=== PATIENT | female | born 1965 | race Caucasian/White ===

== ENCOUNTER 2024-08-14 16:53 | Observation (INO) | payer OTHER, SELFPAY ==
[2024-08-14] VITALS (12 sets, daily range): BP systolic 137–142; BP diastolic 78–99; PULSE 58–72; RESP 9–20; TEMP 36.6; O2SAT 97–100
--- NOTE | ~2024-08-14 | XR_ITS ---
XR chest 2V Ordering provider: Serina Guo MD History: 58 years Female with . chest pain . Comparison: None. FINDINGS: MEDIASTINUM: The cardiac silhouette is not enlarged. LUNGS: No infiltrates, effusions or pneumothorax. OTHER: No free air under the diaphragm. Degenerative changes of the spine. IMPRESSION: No acute cardiopulmonary pathology. Reviewed, dictated and finalized at location A. LITIES CUSTODIAN
--- NOTE | 2024-08-14 16:54 | ECG_ITS ---
Test Date: 2024-08-14 16:59:56 Measurements Intervals [place] Rate: 76 P: 32 GA: 132 QRS: 35 QRSD: 85 T: 56 QT: 380 QTc: 428 Interpretive Statements SINUS RHYTHM WITH OCCASIONAL VENTRICULAR PREMATURE COMPLEXES MILD ST DEPRESSION [0.05+ mV ST DEPRESSION] No previous ECG available for comparison Electronically Signed On 08-15-2024 15:03:57 GREEN END WORKER by Erica Gimenez M.D.
[2024-08-14 17:14] LABS: Basophils Percent Auto 0.4 % (0.2-1.2); Eosinophils Absolute Auto 0.1 K/mm3 (0-0.3); Eosinophils Percent Auto 1.2 % (0-4.4); Hematocrit 36.9 % (37.0-47.0); Hemoglobin 12.2 g/dL (12.0-15.0); Immature Granulocyte Absolute 0.01 K/mm3 (0.00-0.031); Immature Granulocyte Percent A 0.2 % (0-0.5); Lymphocytes Absolute Auto 2.99 K/mm3 (0.9-3.2); Lymphocytes Percent Auto 52.9 % (18.3-44.2); Mean Corpuscular HGB Conc 33.1 g/dl (32-36); Mean Corpuscular Hemoglobin 30.3 pg (26-34); Mean Corpuscular Volume 91.6 fl (80-100); Mean Platelet Volume 9.6 fl (7.4-10.4); Monocytes Absolute Auto 0.3 K/mm3 (0.1-0.6); Monocytes Percent Auto 5.8 % (2.6-8.5); Neutrophils Absolute Auto 2.2 K/mm3 (1.3-6.7); Neutrophils Percent Auto 39.5 % (45.5-73.1); Platelet Count Result 253 k/mm3 (150-375); Red Blood Count 4.03 M/mm3 (4.2-5.4); Red Cell Distribution Width 12.2 % (11.5-14.5); White Blood Count 5.7 K/mm3 (4.5-10.0)
[2024-08-14 17:26] LABS: Alanine Aminotransferase 15 U/L (6-35); Albumin Level 4.7 g/dL (3.5-5.1); Alkaline Phosphatase 54 U/L (38-126); Anion Gap 5 mmol/L (4-12); Aspartate Amino Transferase 28 U/L (14-36); Bilirubin,Total 0.4 mg/dL (0.2-1.3); Blood Urea Nitrogen 13 mg/dL (7-17); Carbon Dioxide 34 mmol/L (22-30); Chloride 100 mmol/L (98-107); Estimated CRCL calculation 50 ml/min; Estimated Glomerular Filt Rate 57; Glucose 121 mg/dL (65-110); Lipase 123 U/L (23-300); Potassium 3.6 mmol/L (3.4-5.0); Sodium 139 mmol/L (137-145)
[2024-08-14 17:28] LABS: INR 0.9; Prothrombin Time 12.7 Seconds (11.1-14.7)
[2024-08-14 17:29] LABS: Partial Thromboplastin Time 27.3 Seconds (22.3-36.8)
[2024-08-14 17:38] LABS: Troponin I < 0.012 ng/mL (0.000-0.034)
--- NOTE | 2024-08-14 17:42 | ED.CHESTPAIN ---
HPI - Chest Pain General Chief Complaint: Chest Pain <Kay TabathaMarimar Fofana EARLY CHILDHOOD ASSOCIATE TEACHER - Last Filed: 08/14/24 17:45> Stated Complaint: chest pain <Kaydarby Fofana EARLY CHILDHOOD ASSOCIATE TEACHER - Last Filed: 08/14/24 17:45> Time Seen by Provider: 08/14/24 17:20 <Kay TabathaMarimar Fofana EARLY CHILDHOOD ASSOCIATE TEACHER - Last Filed: 08/14/24 17:45> Focused HPI: Patient is a 58-year-old female who presents to the ER with complaints of chest pain. She reports that she experienced similar chest pain of approximately 1 week ago but it went away on its. Patient endorses chest pain that started approximately 3-4 hours ago and has not subsided. She endorses a history of high blood pressure, but denies any recent fevers or shortness of breath. GENERAL: Well-appearing, well-nourished, and in no acute distress. HEAD: Normocephalic, atraumatic. CHEST: Clear to auscultation. ?No respiratory distress. HEART: Regular rate and rhythm.? NEURO: ?Alert and oriented x3. Patient screened in triage and initial orders placed.? ?Additional care and disposition to be based upon?diagnostic testing and treatment. <Kaydarby Fofana EARLY CHILDHOOD ASSOCIATE TEACHER - Last Filed: 08/14/24 17:45> Focused HPI: Patient is a 58-year-old female who presents to the ER with complaints of chest pain. She reports that she experienced similar chest pain of approximately 1 week ago but it went away on its. Patient endorses chest pain that started approximately 3-4 hours ago and has not subsided. She endorses a history of high blood pressure, but denies any recent fevers or shortness of breath. The pain feels like a pressure. Her mother at age 64 of a heart attack. GENERAL: Well-appearing, well-nourished, and in no acute distress. HEAD: Normocephalic, atraumatic. CHEST: Clear to auscultation. ?No respiratory distress. HEART: Regular rate and rhythm.? NEURO: ?Alert and oriented x3. Patient screened in triage and initial orders placed.? ?Additional care and disposition to be based upon?diagnostic testing and treatment. <Rita Connor PA-C - Last Filed: 08/15/24 04:10> Related Data Home Medications: Home Medications Medication Instructions Recorded Confirmed fluoxetine 40 mg capsule 40 mg PO DAILY 08/15/24 08/15/24 hydrochlorothiazide 12.5 mg capsule 12.5 mg PO DAILY 08/15/24 08/15/24 omeprazole magnesium 20 mg 20 mg PO DAILY 08/15/24 08/15/24 tablet,delayed release (Prilosec OTC) raloxifene 60 mg tablet 60 mg PO DAILY 08/15/24 08/15/24 rosuvastatin 10 mg tablet 10 mg PO DAILY 08/15/24 08/15/24 <Kay Fofana APRN - Last Filed: 08/14/24 17:45> Allergies/Adverse Reactions: Allergies Allergy/AdvReac Type Severity Reaction Status Date / Time Penicillins Allergy Mild Unknown Verified 08/14/24 16:54 <Kay Fofana APRN - Last Filed: 08/14/24 17:45> Review of Systems Review of Systems: CONSTITUTIONAL: Denies fever CARDIOVASCULAR: Reports chest pain. Denies palpitations, or edema. RESPIRATORY: Denies cough or dyspnea. <Rita Connor PA-C - Last Filed: 08/15/24 04:10> All systems reviewed & are unremarkable except as noted in HPI and below <Rita Connor PA-C - Last Filed: 08/15/24 04:10> [facility] Past Medical History Medical History: Medical History (Updated 08/15/24 @ 04:07 by Rita Connor PA-C) History of hyperlipidemia History of hypertension <Kay Fofana APRN - Last Filed: 08/14/24 17:45> Family History Family History: Family History (Updated 08/15/24 @ 02:47 by Cierra Mcnulty RN) Father Brain cancer Mother Heart disease <Kay Fofana APRN - Last Filed: 08/14/24 17:45> Social History Social History: Social History (Updated 08/14/24 @ 23:58 by Rita Connor PA-C) Smoking status: Never smoker Do You Feel Safe in your Home?: Yes Lack of Transportation: No Lack of Food: Never True Current Housing: I Have Housing Concerned About Future Housing: No Difficulty Paying Gas/Electric Bills: No Difficulty Paying for Meds: No Currently Unemployed: No Education: Trade/Vocational Certificate Difficulty w/ Childcare or Family Care: No Spiritual care concerns: No <Kay Fofana APRN - Last Filed: 08/14/24 17:45> Exam Narrative: GENERAL: Well-appearing, well-nourished, and in no acute distress. HEAD: Normocephalic, atraumatic. EYES: EOMI. NECK: Supple. No JVD CHEST: Clear to auscultation. No respiratory distress. No wheezes rales or rhonchi HEART: Regular rate and rhythm. No murmur heard. Normal peripheral pulses. EXTREMITIES: Normal range of motion. No edema. SKIN: Warm, dry, no rash. NEURO: No focal deficits. Alert and oriented x3. PSYCH: Normal mood and affect <Rita Connor PA-C - Last Filed: 08/15/24 04:10> Course Course Emergency Course: patient updated on her workup and recommendation for admission <Rita Connor PA-C - Last Filed: 08/15/24 04:10> Consultations Consultation #1: spoke with hospitalist about patient and workup who accepts admission <Rita Connor PA-C - Last Filed: 08/15/24 04:10> Date: 08/14/24 <JAMIE Jack Last Filed: 08/15/24 04:10> Vital Signs Vital signs: Vital Signs Temperature 97.8 F 08/14/24 17:15 Pulse Rate 72 08/14/24 17:15 Respiratory Rate 18 08/14/24 17:15 Blood Pressure 137/78 08/14/24 17:15 Pulse Oximetry 99 08/14/24 17:15 Oxygen Delivery Room Air 08/14/24 17:15 Temperature 97.8 F 08/14/24 17:15 Pulse Rate 64 08/15/24 02:31 Respiratory Rate 22 H 08/15/24 02:31 Blood Pressure 152/83 H 08/15/24 02:31 Pulse Oximetry 96 08/15/24 02:31 Oxygen Delivery Room Air 08/14/24 22:20 <Kay Fofana APRN - Last Filed: 08/14/24 17:45> Vital Signs Temperature 97.8 F 08/14/24 17:15 Pulse Rate 72 08/14/24 17:15 Respiratory Rate 18 08/14/24 17:15 Blood Pressure 137/78 08/14/24 17:15 Pulse Oximetry 99 08/14/24 17:15 Oxygen Delivery Room Air 08/14/24 17:15 Temperature 97.8 F 08/14/24 17:15 Pulse Rate 64 08/15/24 02:31 Respiratory Rate 22 H 08/15/24 02:31 Blood Pressure 152/83 H 08/15/24 02:31 Pulse Oximetry 96 08/15/24 02:31 Oxygen Delivery Room Air 08/14/24 22:20 <Rita Connor PA-C - Last Filed: 08/15/24 04:10> MDM - Chest Pain MDM Narrative Medical decision making narrative: Patient presents to the emergency department for episodes of chest pain ongoing over the last week. History of hypertension and hyperlipidemia. Also reports family history of coronary artery disease. CBC metabolic panel without concerning findings. EKG without acute ST changes and baseline and 3 hour troponin are negative. D-dimer is not elevated. Chest x-ray without acute cardiopulmonary abnormality. Patient's heart score is 4. Will be admitted for further observation for chest pain. spoke with hospitalist about patient and workup who accepts admission <Rita Connor PA-C - Last Filed: 08/15/24 04:10> Differential Diagnosis Differential diagnosis: Likely stable angina, atypical chest pain, costochondritis and biliary colic <Rita Connor PA-C - Last Filed: 08/15/24 04:10> Lab Data Attestation: I reviewed the patient's lab results. <Rita Connor PA-C - Last Filed: 08/15/24 04:10> Result diagrams: 08/14/24 17:06 08/14/24 17:06 <Kay Fofana APRN - Last Filed: 08/14/24 17:45> Labs: Lab Results 08/14/24 08/14/24 08/15/24 Range/Units 17:06 22:14 00:53 WBC 5.7 (4.5-10.0) K/mm3 RBC 4.03 L (4.2-5.4) M/mm3 Hgb 12.2 (12.0-15.0) g/dL Hct 36.9 L (37.0-47.0) % MCV 91.6 (80-100) fl MCH 30.3 (26-34) pg MCHC 33.1 (32-36) g/dl RDW 12.2 (11.5-14.5) % Plt Count 253 (150-375) k/mm3 MPV 9.6 (7.4-10.4) fl Immature Gran % (Auto) 0.2 (0-0.5) % Neut % (Auto) 39.5 L (45.5-73.1) % Lymph % (Auto) 52.9 H (18.3-44.2) % [place] % (Auto) 5.8 (2.6-8.5) % Eos % (Auto) 1.2 (0-4.4) % Baso % (Auto) 0.4 (0.2-1.2) % Lymph # (Auto) 2.99 (0.9-3.2) K/mm3 [place] # (Auto) 0.3 (0.1-0.6) K/mm3 Eos # (Auto) 0.1 (0-0.3) K/mm3 Baso # (Auto) 0.0 (0.0-0.1) K/mm3 Abs Immat Gran (auto) 0.01 (0.00-0.031) K/mm3 Absolute Neuts (auto) 2.2 (1.3-6.7) K/mm3 Absolute Nucleated RBC 0.000 (0.0-0.012) K/mm3 Nucleated RBC % 0.0 (0.0-0.2) % PT 12.7 (11.1-14.7) Seconds INR 0.9 APTT 27.3 (22.3-36.8) Seconds D-Dimer < 0.27 (<0.48) ug/mL Sodium 139 (137-145) mmol/L Potassium 3.6 (3.4-5.0) mmol/L Chloride 100 (98-107) mmol/L Carbon Dioxide 34 H (22-30) mmol/L Anion Gap 5 (4-12) mmol/L BUN 13 (7-17) mg/dL Creatinine 1.00 (0.7-1.0) mg/dL Estim Creat Clear Calc 50 ml/min Estimated GFR 57 L (59 - ) Glucose 121 H (65-110) mg/dL Calcium 9.0 (8.4-10.2) mg/dL Total Bilirubin 0.4 (0.2-1.3) mg/dL AST 28 (14-36) U/L ALT 15 (6-35) U/L Alkaline Phosphatase 54 (38-126) U/L Troponin I < 0.012 < 0.012 < 0.012 (0.000-0.034) ng/mL Total Protein 8.0 (6.3-8.2) g/dL Albumin 4.7 (3.5-5.1) g/dL Lipase 123 (23-300) U/L <Kay Fofana, EARLY CHILDHOOD ASSOCIATE TEACHER - Last Filed: 08/14/24 17:45> Lab Results 08/14/24 08/14/24 08/15/24 Range/Units 17:06 22:14 00:53 WBC 5.7 (4.5-10.0) K/mm3 RBC 4.03 L (4.2-5.4) M/mm3 Hgb 12.2 (12.0-15.0) g/dL Hct 36.9 L (37.0-47.0) % MCV 91.6 (80-100) fl MCH 30.3 (26-34) pg MCHC 33.1 (32-36) g/dl RDW 12.2 (11.5-14.5) % Plt Count 253 (150-375) k/mm3 MPV 9.6 (7.4-10.4) fl Immature Gran % (Auto) 0.2 (0-0.5) % Neut % (Auto) 39.5 L (45.5-73.1) % Lymph % (Auto) 52.9 H (18.3-44.2) % [place] % (Auto) 5.8 (2.6-8.5) % Eos % (Auto) 1.2 (0-4.4) % Baso % (Auto) 0.4 (0.2-1.2) % Lymph # (Auto) 2.99 (0.9-3.2) K/mm3 [place] # (Auto) 0.3 (0.1-0.6) K/mm3 Eos # (Auto) 0.1 (0-0.3) K/mm3 Baso # (Auto) 0.0 (0.0-0.1) K/mm3 Abs Immat Gran (auto) 0.01 (0.00-0.031) K/mm3 Absolute Neuts (auto) 2.2 (1.3-6.7) K/mm3 Absolute Nucleated RBC 0.000 (0.0-0.012) K/mm3 Nucleated RBC % 0.0 (0.0-0.2) % PT 12.7 (11.1-14.7) Seconds INR 0.9 APTT 27.3 (22.3-36.8) Seconds D-Dimer < 0.27 (<0.48) ug/mL Sodium 139 (137-145) mmol/L Potassium 3.6 (3.4-5.0) mmol/L Chloride 100 (98-107) mmol/L Carbon Dioxide 34 H (22-30) mmol/L Anion Gap 5 (4-12) mmol/L BUN 13 (7-17) mg/dL Creatinine 1.00 (0.7-1.0) mg/dL Estim Creat Clear Calc 50 ml/min Estimated GFR 57 L (59 - ) Glucose 121 H (65-110) mg/dL Calcium 9.0 (8.4-10.2) mg/dL Total Bilirubin 0.4 (0.2-1.3) mg/dL AST 28 (14-36) U/L ALT 15 (6-35) U/L Alkaline Phosphatase 54 (38-126) U/L Troponin I < 0.012 < 0.012 < 0.012 (0.000-0.034) ng/mL Total Protein 8.0 (6.3-8.2) g/dL Albumin 4.7 (3.5-5.1) g/dL Lipase 123 (23-300) U/L <Rita Connor PA-C - Last Filed: 08/15/24 04:10> Imaging Data Radiologist's impression: ITS Impressions Chest X-Ray 08/14/24 17:39 IMPRESSION: No acute cardiopulmonary pathology. <Rita Connor PA-C - Last Filed: 08/15/24 04:10> ECG Data EKG #1: ECG completion date: 08/14/24 <Rita Connor PA-C - Last Filed: 08/15/24 04:10> EKG Interpretation: normal rate, sinus rhythm, no ST changes and normal QT <Rita Connor PA-C - Last Filed: 08/15/24 04:10> Critical Care Time Critical Care Time Critical Care Time: No <Rita Connor PA-C - Last Filed: 08/15/24 04:10> Discharge Plan Discharge Clinical Impression: Chest pain Qualifiers: Chest pain type: unspecified Qualified Code(s): R07.9 - Chest pain, unspecified <Kay Fofana APRN - Last Filed: 08/14/24 17:45> Patient Disposition: Still a Patient <Kay Fofana APRN - Last Filed: 08/14/24 17:45> Condition: Stable <Kay Fofana APRN - Last Filed: 08/14/24 17:45> Quality HEART score for chest pain patients History: moderately suspicious <Rita Connor PA-C - Last Filed: 08/15/24 04:10> ECG: normal <Rita Connor PA-C - Last Filed: 08/15/24 04:10> Age: > 45 and < 65 years <Rita Connor PA-C - Last Filed: 08/15/24 04:10> Risk factors: > or = to 3 risk factors of atherosclerotic disease <Rita Connor PA-C - Last Filed: 08/15/24 04:10> Troponin: < or = to 1x normal limit <Rita Connor PA-C - Last Filed: 08/15/24 04:10> Heart score: 4 <Rita Connor PA-C - Last Filed: 08/15/24 04:10>
--- NOTE | 2024-08-14 22:04 | ECG_ITS ---
Test Date: 2024-08-14 22:18:42 Measurements Intervals [place] Rate: 61 P: 37 OR: 141 QRS: 27 QRSD: 78 T: 55 QT: 404 QTc: 407 Interpretive Statements SINUS RHYTHM Compared to ECG 08/14/2024 16:59:56 Ventricular premature complex(es) no longer present Electronically Signed On 08-15-2024 15:13:52 EXHAUST EQUIPMENT OPERATOR by Erica Gimenez M.D.
--- NOTE | 2024-08-14 22:21 | PC.NURSE ---
3hour trop collected from right wrist.
[2024-08-14 22:49] LABS: Troponin I < 0.012 ng/mL (0.000-0.034)
[2024-08-15] VITALS (27 sets, daily range): BP systolic 112–152; BP diastolic 60–97; PULSE 57–77; RESP 9–22; TEMP 36.4–36.5; O2SAT 95–100; BMI 26.1
--- NOTE | 2024-08-15 | ECHO_ITS ---
Patient Info Name: Florinda Gilman Age: 58 years : 1965 Gender: Female Ht: 66 in Wt: 151 lbs BSA: 1.79 m2 HR: 62 bpm BP: 122 / 84 mmHg Heart Rhythm: Sinus Rhythm Technical Quality: Good Exam Date: 08/15/2024 4:47 PM Exam Location: Echo Lab Patient Status: Outpatient Admit Date: 08/15/2024 Staff Ordering Physician: Mina Schmitt MD Child Care Supervisor: Cherry Rod RDCS Attending Provider: Mark Anderson MD Exam Type: CA echo dop color flow w con Study Info Indications R07.9 - Chest pain, unspecified Complete two-dimensional, color flow and Doppler transthoracic echocardiogram is performed with contrast to opacify the left ventricle and to improve the deliniation of the left ventricle endocardial borders. Contrast/Agitated Saline Contrast/Ag. Saline: Definity Amount: 2.00 ml Administered By: Cherry Rod RDCS Existing IV Access: Yes IV Access Condition: patent with no signs of infiltration Summary 1. Left ventricular chamber dimension is normal. 2. Left ventricular systolic function is normal, estimated at 65-70%. 3. There is no increased left ventricular wall thickness. 4. The left ventricular diastolic function is normal. 5. Left atrial chamber dimension is mildly enlarged. 6. There is mild mitral valve regurgitation. 7. There is mild tricuspid valve regurgitation. 8. Mild pulmonary hypertension, estimated pulmonary arterial systolic pressure is 38 mmHg. 9. There is mild pulmonic regurgitation. Left Ventricle Left ventricular chamber dimension is normal. Left ventricular systolic function is normal, estimated at 65-70%. There is no increased left ventricular wall thickness. The left ventricular diastolic function is normal. Right Ventricle Right ventricular chamber dimension is normal. Right ventricular systolic function is normal. Left Atria Left atrial chamber dimension is mildly enlarged. Right Atria Right atrial chamber dimension is normal. Atrial Septum Intact interatrial septum visualized by color flow imaging. Aortic Valve The aortic valve is trileaflet. There is mild aortic valve sclerosis. There is no aortic valve stenosis. There is trace aortic valve regurgitation. Pulmonic Valve The pulmonic valve is normal. There is no pulmonic valve stenosis. There is mild pulmonic regurgitation. Mitral Valve The mitral valve has normal leaflets. There is no mitral valve stenosis. There is mild mitral valve regurgitation. Tricuspid Valve The tricuspid valve leaflets are normal. There is no significant tricuspid valve stenosis. There is mild tricuspid valve regurgitation. Mild pulmonary hypertension, estimated pulmonary arterial systolic pressure is 38 mmHg. Pericardium/Pleural The pericardium appears normal. There is trivial pericardial effusion. Inferior Vena Cava Normal inferior vena cava with <50% collapse upon inspiration consistent with elevated right atrial pressure, 10 mmHg. Aorta The aortic root size at the sinus of Valsalva is normal. Left Ventricular Outflow Tract Name Value Normal LVOT 2D LVOT Diameter 2.01 cm LVOT Doppler LVOT Peak Gradient 3 mmHg LVOT Mean Gradient 1 mmHg LVOT VTI 17.23 cm LVOT VTI/AV VTI Ratio 0.75 LVOT Stroke Volume 54.49 ml LVOT CO 3.32 l/min LVOT CI 1.85 L/min/m2 Pulmonic Valve Name Value Normal RVOT Doppler RVOT Peak Gradient 1 mmHg PV Doppler PV Peak Gradient 2 mmHg Mitral Valve Name Value Normal MV Doppler MV Decel [place] 496.82 cm/s2 MV PHT 0 s MV Area (PHT) 3.97 cm2 4.00-5.00 MV Diastolic Function MV E Peak Velocity 94.99 cm/s MV A Peak Velocity 68.58 cm/s MV E/A 1.39 MV Decel Time 0 s MV Annular TDI MV E/e' (Septal) 13.20 <=8.00 MV E/e' (Lateral) 10.85 <=8.00 MV E/e' (Average) 12.03 Tricuspid Valve Name Value Normal TV Regurgitation Doppler TR Peak Velocity 263.54 cm/s TR Peak Gradient 28 mmHg Estimated PAP/RSVP RA Pressure 10 mmHg <=5 PA Systolic Pressure 38 mmHg <36 RV Systolic Pressure 38 mmHg <36 Aorta Name Value Normal Ascending Aorta Ao Root Diameter (MM) 2.85 cm Ao Root Diam Index (MM) 1.59 cm/m2 Aortic Valve Name Value Normal AV Doppler AV Peak Velocity 93.98 cm/s AV Peak Gradient 4 mmHg AV Mean Gradient 2 mmHg AV VTI 22.95 cm AV Area (Cont Eq VTI) 2.38 cm2 >=3.00 AV Area (Cont Eq Oc) 2.71 cm2 AV Regurgitation 2D LVOT Area 3.16 cm2 Ventricles Name Value Normal LV Dimensions 2D/MM IVS Diastolic Thickness (2D) 0.77 cm 0.60-1.00 LVID Diastole (2D) 4.70 cm 3.80-5.20 LVIW Diastolic Thickness (2D) 0.73 cm 0.60-0.90 LVID Systole (2D) 2.87 cm 2.20-3.50 LVOT Diameter 2.01 cm LV Mass (2D Cubed) 112.38 g 67.00-162.00 LV Mass Index (2D Cubed) 0.01 g/cm2 0.00-0.01 Relative Wall Thickness (2D) 0.31 LV Fractional Shortening/Ejection Fraction 2D/MM LV Fractional Shortening (2D) 39 % 27-45 LV EF (2D Teicholz) 69 % 54-74 LV Diastolic Volume (4C MOD) 67.06 ml LV EF (4C MOD) 74 % LV Diastolic Volume (2C MOD) 67.80 ml LV EF (2C MOD) 72 % LV Diastolic Volume (BP MOD) 68.97 ml 46.00-106.00 LV Diastolic Volume Index (BP MOD) 0.04 l/m2 0.03-0.06 LV Systolic Volume (BP MOD) 18.90 ml 14.00-42.00 LV Systolic Volume Index (BP MOD) 0.01 l/m2 0.01-0.02 LV EF (BP MOD) 73 % 54-74 LV Diastolic Length (4C) 6.67 cm LV Systolic Length (4C) 5.26 cm LV Stroke Volume (4C MOD) 49.37 ml Atria Name Value Normal LA Dimensions LA Dimension (MM) 3.98 cm 2.70-3.80 LA Volume (4C A-L) 57.38 ml LA Volume (BP A-L) 49.14 ml RA Dimensions RA Area (4C) 11.48 cm2 <=18.00 Report Signatures
--- NOTE | 2024-08-15 00:40 | PM.IMHP ---
H&P: HPI History of Present Illness Date/Time: 08/15/24 00:40 Chief Complaint: 1. Chest pain Narrative: Florinda Gilman is a 58 yo F with a mHx significant for HTN, Dyslipidemia, She confesses to have been experiencing chest pains over the last 3 weeks; in previous intermittent episodes, they occur at rest and resolve spontaneously; however the episode that led to an ED visit failed to improve with no known modifying factors. She denies associated cough, fevers, chills, nausea, vomiting, dizziness or LOC. A retired clinical secretary, she does not smoke/chew tobacco, drink alcohol or consume recreational/illicit drugs. Her sister and father have a history of CAD. Work-up findings: CXR: Unremarkable Troponin: <0.012 x3 D-dimer: <0.27 ECG: Bradycardia; No evidence of ST-T wave changes. Unremarkable CBC CMP significant for GFR 57; HCO3 57, AG 5 She will be admitted, evaluated and managed for chest pain Review of Systems Constitutional: Constitutional: Denies body ache(s), Denies chills, Denies difficulty sleeping, Denies fatigue, Denies lethargy and Denies night sweats ENT: Reports Normal hearing present, Denies dysphagia, Denies epistaxis, Denies nasal congestion and Denies nasal discharge Cardiovascular: Cardiovascular: Reports chest pain, Denies pedal edema and Denies leg edema Respiratory: Respiratory: Reports no additional respiratory complaints Gastrointestinal: Gastrointestinal: Denies constipation, Denies heartburn, Denies diarrhea, Denies nausea, Denies vomiting and Denies hematemesis Genitourinary: Genitourinary: Denies dysmenorrhea, Denies dysuria, Denies pelvic pain and Denies flank pain Musculoskeletal: Musculoskeletal: Reports no additional musculoskeletal complaints Neurologic: Denies Abnormal speech present, Denies abnormal gait, Denies confusion, Denies vertigo and Denies headache(s) Psychiatric: Psychiatric: Denies depression [facility] Past Medical History Medical History (Updated 08/15/24 @ 02:55 by Mark Anderson MD) History of hyperlipidemia History of hypertension Family History Family History (Updated 08/15/24 @ 02:47 by Cierra Mcnulty RN) Father Brain cancer Mother Heart disease Social History Social History (Updated 08/14/24 @ 23:58 by Rita Connor PA-C) Smoking status: Never smoker Do You Feel Safe in your Home?: Yes Lack of Transportation: No Lack of Food: Never True Current Housing: I Have Housing Concerned About Future Housing: No Difficulty Paying Gas/Electric Bills: No Difficulty Paying for Meds: No Currently Unemployed: No Education: Trade/Vocational Certificate Difficulty w/ Childcare or Family Care: No Spiritual care concerns: No Meds Home Medications and Allergies Home Medications Medication Instructions Recorded Confirmed Type fluoxetine 40 mg capsule 40 mg PO DAILY 08/15/24 08/15/24 History hydrochlorothiazide 12.5 mg capsule 12.5 mg PO DAILY 08/15/24 08/15/24 History omeprazole magnesium 20 mg 20 mg PO DAILY 08/15/24 08/15/24 History tablet,delayed release (Prilosec OTC) raloxifene 60 mg tablet 60 mg PO DAILY 08/15/24 08/15/24 History rosuvastatin 10 mg tablet 10 mg PO DAILY 08/15/24 08/15/24 History Allergies Allergy/AdvReac Type Severity Reaction Status Date / Time Penicillins Allergy Mild Unknown Verified 08/14/24 16:54 Vital Signs Vital Signs - 24 hr 08/14/24 17:15 08/14/24 21:32 08/14/24 22:20 Temperature 97.8 F Pulse Rate 72 70 67 Respiratory Rate 18 16 Blood Pressure 137/78 140/79 Pulse Oximetry 99 99 Oxygen Delivery Room Air 08/14/24 22:20 Temperature Pulse Rate Respiratory Rate Blood Pressure Pulse Oximetry Oxygen Delivery Room Air Exam Const: General: comfortable and no acute distress; No in distress HENMT: Face/Nose/Sinus: Normal nares present and no epistaxis Mouth: Yes moist mucous membranes and No dry mucous membranes Eyes: Sclera: sclerae normal and scleral abnormality Pupils: Equal, round and reactive pupils present EOM: EOMs intact bilaterally Neck: Neck: supple Thyroid: thyroid normal Carotids: no bruits Resp: Effort & Inspection: normal respiratory effort Auscultation: clear to auscultation bilaterally, no crackles, no rales, no rhonchi and no wheezes Cardio: Rate: bradycardic Rhythm: regular rhythm GI: GI Palp: Yes Soft to palpation and No Guarding due to palpation present (GI) Auscultation: normal bowel sounds Skin: General skin exam: normal color Neuro: General: No gait normal Motor exam (neuro): 5/5 motor strength present throughout, Normal motor muscle tone present throughout, Abnormal motor strength present and Motor abnormalites present Psych: Mental Status: mental status grossly normal Affect: normal affect, No Sad affect present, Anxious affect present and No Hostile affect present H&P: Results Labs Labs: Short CBC 08/14/24 Range/Units 17:06 WBC 5.7 (4.5-10.0) K/mm3 Hgb 12.2 (12.0-15.0) g/dL Hct 36.9 L (37.0-47.0) % Plt Count 253 (150-375) k/mm3 BMP 08/14/24 17:06 Sodium 139 Potassium 3.6 Chloride 100 Carbon Dioxide 34 H BUN 13 Creatinine 1.00 Glucose 121 H Calcium 9.0 Cardiac Enzymes 08/14/24 08/14/24 Range/Units 17:06 22:14 Troponin I < 0.012 < 0.012 (0.000-0.034) ng/mL Liver Function 08/14/24 Range/Units 17:06 Total Bilirubin 0.4 (0.2-1.3) mg/dL AST 28 (14-36) U/L ALT 15 (6-35) U/L Alkaline Phosphatase 54 (38-126) U/L Albumin 4.7 (3.5-5.1) g/dL Assessment and Plan Assessment and plan (1) Chest pain: Code(s): R07.9 - Chest pain, unspecified Status: Acute Plan Acute and principal conditions 1. Chest pain. maybe ACS or anxiety 2. Metabolic alkalosis. probably 2/2 HCTZ 3. Acute renal insufficiency. maybe 2/2 HCTZ Cardiac monitoring Trend troponin, ECG NTG, ASA, Morphine Avoid nephrotoxins; Monitor renal functions Chronic and stable conditions 1. Hypertension. On HCTZ. will hold 2. Osteoporosis. on Raloxifene 3. Dyslipidemia. On Rosuvastatin 4. Recurrent anxiety with depression. On Fluoxetine Code status. Full Nutrition. NPO VTE prophylaxis. SCDs; TYSHAWN Quality VTE Prophylaxis VTE prophylaxis: mechanical ordered and pharmacologic ordered Hospitalist MIPS Advance Care Plan I have confirmed that the patient's Advanced Care Plan is present, code status is documented, or surrogate decision maker is listed in patient medical record.: Yes Medication Reconciliation I have utilized all available resources to obtain, update and review the patients current medications (includes all prescriptions, OTC, herbals, cannabis, and nutritional supplements).: Yes
[2024-08-15] MEDS: ASPIRIN 81 MG CHEWABLE TABLET 324 MG PO (00:44)
[2024-08-15] MEDS: NITROGLYCERIN SL 0.4 MG TABLET SUBLINGUAL (00:45)
[2024-08-15] MEDS: ONDANSETRON INJ 4 MG/2 ML VIAL IV PUSH (00:48)
[2024-08-15] MEDS: MORPHINE SULFATE (*CRX) 4 MG/ML INJ IV PUSH (00:50)
[2024-08-15 01:23] LABS: Troponin I < 0.012 ng/mL (0.000-0.034)
[2024-08-15 01:27] LABS: D Dimer < 0.27 ug/mL (<0.48)
--- NOTE | 2024-08-15 01:30 | ECG_ITS ---
Test Date: 2024-08-15 01:32:14 Measurements Intervals [place] Rate: 58 P: 31 AK: 138 QRS: 28 QRSD: 90 T: 51 QT: 435 QTc: 430 Interpretive Statements SINUS BRADYCARDIA Compared to ECG 08/14/2024 22:18:42 NO SIGNIFICANT CHANGES Electronically Signed On 08-15-2024 15:15:03 [employer] by Erica Gimenez M.D.
[2024-08-15] MEDS: SODIUM CHLORIDE 0.9% IV 1,000 ML 75 ML IV CONT (04:01)
[2024-08-15 05:41] LABS: Basophils Percent Auto 0.2 % (0.2-1.2); Eosinophils Percent Auto 0.5 % (0-4.4); Hematocrit 34.9 % (37.0-47.0); Immature Granulocyte Absolute 0.02 K/mm3 (0.00-0.031); Immature Granulocyte Percent A 0.2 % (0-0.5); Lymphocytes Absolute Auto 3.35 K/mm3 (0.9-3.2); Lymphocytes Percent Auto 41.3 % (18.3-44.2); Mean Corpuscular HGB Conc 31.5 g/dl (32-36); Mean Corpuscular Hemoglobin 29.4 pg (26-34); Mean Corpuscular Volume 93.3 fl (80-100); Mean Platelet Volume 9.6 fl (7.4-10.4); Monocytes Absolute Auto 0.4 K/mm3 (0.1-0.6); Monocytes Percent Auto 5.3 % (2.6-8.5); Neutrophils Absolute Auto 4.3 K/mm3 (1.3-6.7); Neutrophils Percent Auto 52.5 % (45.5-73.1); Platelet Count Result 199 k/mm3 (150-375); Red Blood Count 3.74 M/mm3 (4.2-5.4); White Blood Count 8.1 K/mm3 (4.5-10.0)
[2024-08-15 05:56] LABS: Alanine Aminotransferase 57 U/L (6-35); Albumin Level 3.9 g/dL (3.5-5.1); Alkaline Phosphatase 71 U/L (38-126); Anion Gap 2 mmol/L (4-12); Aspartate Amino Transferase 134 U/L (14-36); Bilirubin,Total 0.4 mg/dL (0.2-1.3); Blood Urea Nitrogen 12 mg/dL (7-17); Calcium 8.7 mg/dL (8.4-10.2); Carbon Dioxide 33 mmol/L (22-30); Chloride 102 mmol/L (98-107); Estimated CRCL calculation 55 ml/min; Estimated Glomerular Filt Rate > 60; Glucose 102 mg/dL (65-110); Potassium 3.7 mmol/L (3.4-5.0); Sodium 137 mmol/L (137-145)
[2024-08-15] MEDS: DOCUSATE SODIUM 100 MG CAPSULE PO ×2 (09:29→20:07)
[2024-08-15] MEDS: HEPARIN SODIUM 5,000 UNITS/ML VIAL 5000 UNITS SUB-Q ×2 (09:30→20:07)
--- NOTE | 2024-08-15 09:42 | PC.NURSE ---
Meal tray ordered for pt
--- NOTE | 2024-08-15 10:50 | PC.NURSE ---
RN gave report to Jessica VENTURA at [place]
[2024-08-15] MEDS: PANTOPRAZOLE SOD SESQUIHYDRATE 20 MG TAB PO (11:36)
--- NOTE | 2024-08-15 11:54 | PM.IMPN ---
Progress Note: A&P Assessment and Plan (1) Chest pain: Qualifiers: Chest pain type: unspecified Qualified Code(s): R07.9 - Chest pain, unspecified Code(s): R07.9 - Chest pain, unspecified Status: Acute Plan Patient reports intermittent chest pain over the past 3 weeks. Nonexertional. Several hours. Exacerbating or relieving factors. Not associated with cough fever chills nausea vomiting dizziness or loss of consciousness. Does not smoke or drink alcohol. History of GERD and esophageal stricture needing dilatation intermittently. In the ED ER vitals were stable. Laboratory evaluation showed WBC of 5.7 hemoglobin of 12.2 platelet of 253 came panel unremarkable. Serial troponin was done which remained negative. D-dimer was negative as well. LFTs was normal. She received aspirin nitroglycerin. Serial troponin remained negative. Will get echocardiogram to further evaluate. Chest pain is atypical and unlikely cardiac etiology. Likely related to GERD. Up titration of omeprazole discussed and follow-up with GI that she already follows up with was discussed with the patient. Echocardiogram looks okay she will be discharged home she is agreeable with the plan. Chronic and stable conditions 1. Hypertension. On HCTZ. will hold 2. Osteoporosis. on Raloxifene 3. Dyslipidemia. On Rosuvastatin 4. Recurrent anxiety with depression. On Fluoxetine Code status. Full Nutrition. NPO VTE prophylaxis. SCDs; TYSHAWN Subjective Date/time seen: 08/15/24 11:54 Interval history: No overnight events. No new complaints. Chest discomfort still persists. Denies any shortness of breath nausea vomiting. Chest pain is not exertional. Review of Systems Review of Systems: All systems reviewed & are unremarkable except as noted in HPI and below Exam Narrative: GENERAL: The patient is well developed, not in acute distress HEENT: Nonicteric sclerae, PERRLA, EOMI. Oropharynx clear. Moist mucous membranes. Conjunctivae appear well perfused. CHEST: Chest wall is nontender. HEART: Regular rate and rhythm without murmur, rubs, or gallops LUNGS: Clear to auscultation bilaterally. no respiratory distress ABDOMEN: Soft, positive bowel sounds, non-tender, no organomegaly. SKIN: No rash, no excessive bruising, petechiae, or purpura. NEUROLOGIC: Cranial nerves II-XII intact, alert and oriented x 3, no gross motor deficits EXTREMITIES: no edema, cyanosis or clubbing Objective Data Vital Signs Vital Signs: Vital Signs - 24 hr 08/14/24 17:15 08/14/24 21:32 08/14/24 22:20 Temperature 97.8 F Pulse Rate 72 70 67 Respiratory Rate 18 16 Blood Pressure 137/78 140/79 Pulse Oximetry 99 99 Oxygen Delivery Room Air 08/14/24 22:20 08/14/24 22:42 08/14/24 22:45 Temperature Pulse Rate 62 62 Respiratory Rate 12 11 L Blood Pressure Pulse Oximetry 99 98 Oxygen Delivery Room Air 08/14/24 22:46 08/14/24 23:00 08/14/24 23:01 Temperature Pulse Rate 58 L 65 59 L Respiratory Rate 9 L 14 11 L Blood Pressure 137/91 H 142/89 H Pulse Oximetry 99 99 98 Oxygen Delivery 08/14/24 23:15 08/14/24 23:17 08/14/24 23:45 Temperature Pulse Rate 59 L 62 61 Respiratory Rate 20 14 19 Blood Pressure 138/94 H Pulse Oximetry 97 99 100 Oxygen Delivery 08/14/24 23:47 08/15/24 00:00 08/15/24 00:02 Temperature Pulse Rate 63 58 L 58 L Respiratory Rate 15 11 L 11 L Blood Pressure 141/99 H 129/95 H Pulse Oximetry 99 98 99 Oxygen Delivery 08/15/24 00:23 08/15/24 00:30 08/15/24 00:45 Temperature Pulse Rate 62 59 L 68 Respiratory Rate 11 L 10 L 16 Blood Pressure Pulse Oximetry 100 97 Oxygen Delivery 08/15/24 00:48 08/15/24 01:00 08/15/24 01:01 Temperature Pulse Rate 64 63 63 Respiratory Rate 14 13 19 Blood Pressure 143/97 H 126/75 Pulse Oximetry 98 96 96 Oxygen Delivery 08/15/24 01:02 08/15/24 01:15 08/15/24 01:16 Temperature Pulse Rate 62 57 L 57 L Respiratory Rate 20 12 9 L Blood Pressure 117/83 Pulse Oximetry 96 97 95 Oxygen Delivery 08/15/24 02:21 08/15/24 02:30 08/15/24 02:31 Temperature Pulse Rate 61 59 L 64 Respiratory Rate 16 16 22 H Blood Pressure 152/83 H Pulse Oximetry 97 96 96 Oxygen Delivery 08/15/24 07:18 08/15/24 09:32 08/15/24 10:33 Temperature Pulse Rate 59 L 63 63 Respiratory Rate 17 17 18 Blood Pressure 119/73 131/96 H 136/81 Pulse Oximetry 98 98 98 Oxygen Delivery 08/15/24 11:18 Temperature Pulse Rate 71 Respiratory Rate 17 Blood Pressure 135/77 Pulse Oximetry 97 Oxygen Delivery Meds/Results Medications: Active Medications Generic Name Dose Route Start Last Admin Trade Name Freq PRN Reason Stop Dose Admin Acetaminophen 650 mg 08/15/24 00:37 Acetaminophen 325 Mg Tablet PO Q4H PRN Mild Pain (1-3) or Fever Bisacodyl 10 mg 08/15/24 00:37 Bisacodyl 10 Mg Suppository RECTAL ONCE PRN Constipation Docusate Sodium 100 mg 08/15/24 09:00 08/15/24 09:29 Docusate Sodium 100 Mg Capsule PO 100 mg Q12HR TYSHAWN Administration Heparin Sodium (Porcine) 5,000 units 08/15/24 09:00 08/15/24 09:30 Heparin Sodium 5,000 Units/Ml Vial SUB-Q 5,000 units Q12HR TYSHAWN Administration Sodium Chloride 1,000 mls @ 75 mls/hr 08/15/24 03:10 08/15/24 04:01 Normal Saline Iv IV CONT 75 mls/hr .[id number] TYSHAWN Administration Perflutren Lipid Microsphere 0 ml 08/15/24 11:54 Perflutren Lipid Microspheres 1.5 Ml Vial Diluted To 10 Ml Total Volume IV PUSH 08/18/24 11:54 ONCE PRN adequate visualization Protocol Radiology Results: ITS Impressions Chest X-Ray 08/14/24 17:39 IMPRESSION: No acute cardiopulmonary pathology. Labs Labs: Laboratory Results - last 24 hr 08/14/24 08/14/24 08/15/24 17:06 22:14 00:53 WBC 5.7 RBC 4.03 L Hgb 12.2 Hct 36.9 L MCV 91.6 MCH 30.3 MCHC 33.1 RDW 12.2 Plt Count 253 MPV 9.6 Immature Gran % (Auto) 0.2 Neut % (Auto) 39.5 L Lymph % (Auto) 52.9 H [place] % (Auto) 5.8 Eos % (Auto) 1.2 Baso % (Auto) 0.4 Lymph # (Auto) 2.99 [place] # (Auto) 0.3 Eos # (Auto) 0.1 Baso # (Auto) 0.0 Abs Immat Gran (auto) 0.01 Absolute Neuts (auto) 2.2 Absolute Nucleated RBC 0.000 Nucleated RBC % 0.0 PT 12.7 INR 0.9 APTT 27.3 D-Dimer < 0.27 Sodium 139 Potassium 3.6 Chloride 100 Carbon Dioxide 34 H Anion Gap 5 BUN 13 Creatinine 1.00 Estim Creat Clear Calc 50 Estimated GFR 57 L Glucose 121 H Calcium 9.0 Total Bilirubin 0.4 AST 28 ALT 15 Alkaline Phosphatase 54 Troponin I < 0.012 < 0.012 < 0.012 Total Protein 8.0 Albumin 4.7 Lipase 123 08/15/24 05:34 WBC 8.1 RBC 3.74 L Hgb 11.0 L Hct 34.9 L MCV 93.3 MCH 29.4 MCHC 31.5 L RDW 12.0 Plt Count 199 MPV 9.6 Immature Gran % (Auto) 0.2 Neut % (Auto) 52.5 Lymph % (Auto) 41.3 [place] % (Auto) 5.3 Eos % (Auto) 0.5 Baso % (Auto) 0.2 Lymph # (Auto) 3.35 H [place] # (Auto) 0.4 Eos # (Auto) 0.0 Baso # (Auto) 0.0 Abs Immat Gran (auto) 0.02 Absolute Neuts (auto) 4.3 Absolute Nucleated RBC 0.000 Nucleated RBC % 0.0 PT INR APTT D-Dimer Sodium 137 Potassium 3.7 Chloride 102 Carbon Dioxide 33 H Anion Gap 2 L BUN 12 Creatinine 0.90 Estim Creat Clear Calc 55 Estimated GFR > 60 Glucose 102 Calcium 8.7 Total Bilirubin 0.4 AST 134 H ALT 57 H Alkaline Phosphatase 71 Troponin I Total Protein 6.0 L Albumin 3.9 Lipase
--- NOTE | 2024-08-15 15:49 | PC.NURSE ---
Arrived to the floor at 1522pm via wheelchair from the ER. Ambulatory, with a steady gait. superintendent local placed on and functioning at this time. Gown changed. Reviewed admission folder with patient. Denies questions. Assessed for pain, states that I have some chest pain still . Describes chest pain as pressure in the front and a sharp/stabbing pain in the back. Rates pain a 5/10, and states that the pain has improved from previous assessment. Denies shortness of breath at this time, remains on room air. Ambulated to the bathroom. No acute distress noted at this time.
[2024-08-15] MEDS: PERFLUTREN LIPID MICROSPHERES 1.5 ML VIAL DILUTED TO 10 ML TOTAL VOLUME IV PUSH (16:50)
--- NOTE | 2024-08-15 17:43 | IVDEFINITY ---
Prior to administration of IV Definity the patient was educated on the risks and benefits of the imaging enhancing agent including potential adverse side effects. The patient verbalized understanding. Allergies were verified. No exclusion criteria were identified and at least one of the following inclusion criteria were met: 1) physician request, 2) patient technically difficult to image (per the [place] [employer] guidelines of two or more segments not discernable within the apical view), or 3) questionable left ventricular function. ?
[2024-08-16] VITALS (14 sets, daily range): BP systolic 95–139; BP diastolic 44–72; PULSE 59–75; RESP 12–16; TEMP 36.4–36.5; O2SAT 94–98
[2024-08-16 05:00] LABS: Basophils Percent Auto 0.4 % (0.2-1.2); Eosinophils Absolute Auto 0.1 K/mm3 (0-0.3); Eosinophils Percent Auto 2.7 % (0-4.4); Hematocrit 34.7 % (37.0-47.0); Immature Granulocyte Absolute 0.01 K/mm3 (0.00-0.031); Immature Granulocyte Percent A 0.2 % (0-0.5); Mean Corpuscular HGB Conc 31.7 g/dl (32-36); Mean Corpuscular Hemoglobin 29.2 pg (26-34); Mean Platelet Volume 9.6 fl (7.4-10.4); Monocytes Absolute Auto 0.3 K/mm3 (0.1-0.6); Monocytes Percent Auto 5.2 % (2.6-8.5); Neutrophils Absolute Auto 1.3 K/mm3 (1.3-6.7); Neutrophils Percent Auto 25.5 % (45.5-73.1); Platelet Count Result 215 k/mm3 (150-375); Red Blood Count 3.77 M/mm3 (4.2-5.4); Red Cell Distribution Width 12.1 % (11.5-14.5); White Blood Count 5.2 K/mm3 (4.5-10.0)
[2024-08-16 05:18] LABS: Alanine Aminotransferase 45 U/L (6-35); Albumin Level 3.6 g/dL (3.5-5.1); Alkaline Phosphatase 68 U/L (38-126); Anion Gap 1 mmol/L (4-12); Aspartate Amino Transferase 45 U/L (14-36); Bilirubin,Total 0.5 mg/dL (0.2-1.3); Blood Urea Nitrogen 12 mg/dL (7-17); Calcium 8.6 mg/dL (8.4-10.2); Carbon Dioxide 33 mmol/L (22-30); Chloride 104 mmol/L (98-107); Estimated CRCL calculation 50 ml/min; Estimated Glomerular Filt Rate 57; Glucose 97 mg/dL (65-110); Potassium 4.2 mmol/L (3.4-5.0); Sodium 138 mmol/L (137-145)
[2024-08-16] MEDS: HEPARIN SODIUM 5,000 UNITS/ML VIAL 5000 UNITS SUB-Q (07:43)
[2024-08-16] MEDS: hydroCHLOROthiazide 12.5 MG CAPSULE PO (07:44)
[2024-08-16] MEDS: FLUoxetine HCL 20 MG CAPSULE 40 MG PO (07:44)
[2024-08-16] MEDS: RALOXIFENE HCL (*CHEMO) 60 MG TABLET PO (07:44)
[2024-08-16] MEDS: DOCUSATE SODIUM 100 MG CAPSULE PO (07:44)
[2024-08-16] MEDS: PANTOPRAZOLE 40 MG TABLET PO (07:44)
[2024-08-16] MEDS: ROSUVASTATIN 10 MG TABLET PO (07:45)
--- NOTE | 2024-08-16 13:14 | PM.DS ---
DS: Admitting Diagnosis Discharge Date 08/16/24 Admitting Diagnosis Chest pain DS: Discharge Diagnosis Discharge Diagnosis (1) Chest pain: Qualifiers: Chest pain type: unspecified Qualified Code(s): R07.9 - Chest pain, unspecified Code(s): R07.9 - Chest pain, unspecified Status: Acute (2) HTN (hypertension), benign: Code(s): I10 - Essential (primary) hypertension Status: Acute (3) Hyperlipidemia: Code(s): E78.5 - Hyperlipidemia, unspecified Status: Acute (4) GERD (gastroesophageal reflux disease): Code(s): K21.9 - Gastro-esophageal reflux disease without esophagitis Status: Acute DS: Summary Hospital Course Reason for hospitalization: 58yo female with HTN and HLD here for chest pain. Please see H&P for details. Hospital Course: Patient presents with intermittent chest pain over the past 2 weeks that comes on at rest. Not associated with food and nothing makes it better/worse. Not pleuritic or palpable. Radiates to the back. Having GERD symptoms recently despite being on Prilosec. Symptoms last for hours to days. She is under a lot of financial stress. Pain is not positional. Hx of esophageal dilation about 5 years ago. No current symptoms of dysphagia or odynophagia. In the ED, her vitals were stable. CBC was unremarkable with normal WBC except for elevated lymphocytes. PT/PTT were normal. DDimer was negative. CXR was clear. She was not tachycardic or hypoxic on admission. CMP was normal except for elevated serum bicarb. AST and ALT climbed to 134 and 57 respectfully but improved on recheck. Lipase was normal. Serial troponins were negative. EKG showing sinus rhythm with occasional PVC and mild ST depression. Repeat EKG showing similar findigs. Echo showing EF 65-70%, normal diastolic fxn, mild LAE, mild MR/TR and mild pulmonary HTN. She denies symptoms of sleep apnea. She received aspirin and nitroglycerin. Chest pain resolved. Her symptoms were atypical and unlikely cardiac etiology. Likely related to GERD from esophageal spasm. Spoke about continuing the Prilosec and adding pepcid at night. Consider also viral etiology with elevated LFTs, lymphocytosis. Could have caused a mild pericarditis. Discussed with her that her symptoms are low-likelihood for coronary disease but that she does have risk factors and options discussed including inpatient stress test. With shared decision making, she decided to go home today and follow-up with Cardiology for an outpatient stress test. All questions answered. She was informed to call EMS and come back to the ED if she has recurrent chest pain. She overall did well and was able to be discharged on 08/16/24. Status at Discharge Cognitive/behavioral status at discharge: stable Time Spent with Patient Time attestation: Total time spent providing and/or coordinating discharge services: 35 minutes Time spent: Greater than 30 minutes Exam Narrative: AF 97.5 108/69 68 12 97% ra Gen - NARD Chest - CTA bilaterally, nml RR CV - RRR S1/S2. Tele showing no significant dysrhythmias Abd - Soft, NT/ND, Positive BS Ext - No pedal edema Psych - Nml mood and affect Skin - Warm and dry DS: Data Data Completed and Pending Labs on day of discharge: Labs from last 24 hours 08/16/24 04:45 WBC 5.2 RBC 3.77 L Hgb 11.0 L Hct 34.7 L MCV 92.0 MCH 29.2 MCHC 31.7 L RDW 12.1 Plt Count 215 MPV 9.6 Immature Gran % (Auto) 0.2 Neut % (Auto) 25.5 L Lymph % (Auto) 66.0 H [place] % (Auto) 5.2 Eos % (Auto) 2.7 Baso % (Auto) 0.4 Lymph # (Auto) 3.40 H [place] # (Auto) 0.3 Eos # (Auto) 0.1 Baso # (Auto) 0.0 Abs Immat Gran (auto) 0.01 Absolute Neuts (auto) 1.3 Absolute Nucleated RBC 0.000 Nucleated RBC % 0.0 Sodium 138 Potassium 4.2 Chloride 104 Carbon Dioxide 33 H Anion Gap 1 L BUN 12 Creatinine 1.00 Estim Creat Clear Calc 50 Estimated GFR 57 L Glucose 97 Calcium 8.6 Total Bilirubin 0.5 AST 45 H ALT 45 H Alkaline Phosphatase 68 Total Protein 6.0 L Albumin 3.6 Discharge Plan Discharge Attending physician on discharge: Nura Vera Discharging Clinician: Nura Vera Anticipated Discharge Date/Time: 08/16/24 13:34 Patient Disposition: Home, Self-Care Activity: no straining Diet: heart healthy Discharge Instructions: Check blood pressure 1 to 2 times a day. Record and bring into your doctor for review. Call your doctor if your blood pressure is greater than 180/110. Contact your doctor or call 911 and come to the Emergency Room if you have chest pain or other worrisome symptoms. Avoid NSAIDs (ibuprofen, naproxen, Aleve). Tylenol is safe to take. Start [id number] famotidine 20mg daily at night Follow-up with your primary care provider in 1-2 weeks. Please call for appointment. --Please ask about testing for sleep apnea due to the high pressure in your lungs Follow-up with your GI doctor in 2-4 weeks. Please call for an appointment. Follow-up with Cardiology in 1-2 weeks to for a cardiac stress test. Thank you for using [facility] for your health care needs. Patient Instructions: Antibiotic Form, Pain Management (DC) Stand Alone Forms: General Discharge Information Follow-up/Referrals: Erica Gimenez MD [Physician] - Call for Appointment UNKNOWN,DOCTOR [Primary Care Provider] - Call for Appointment Discharge Medications: Continued fluoxetine 40 mg capsule 40 mg PO DAILY hydrochlorothiazide 12.5 mg capsule 12.5 mg PO DAILY raloxifene 60 mg tablet 60 mg PO DAILY rosuvastatin 10 mg tablet 10 mg PO DAILY omeprazole magnesium [Prilosec OTC] 20 mg Tablet,Delayed Release (Dr/Ec) 20 mg PO DAILY Date of admission: 08/15/24 01:43 Primary Care Provider: UNKNOWN,DOCTOR Admitting Provider: Mark Anderson Attending physician on admission: Mark Anderson Condition: Stable Hospitalist MIPS Heart Failure (Exclusion) Patient has history of Heart Transplant or Left Ventricular Assistive Device?: No IF YES, STOP HERE Heart Failure (Qualifier) Patient has current or prior documentation of LVEF less than or equal to 40%, or mod/servere depressed LVSF?: No IF NO, STOP HERE
--- NOTE | 2024-08-16 14:52 | PC.NURSE ---
reviewed discharge instructions with patient including medications and last dose. Denies questions at this time and verbalizes understanding. Discharged to personal vehicle.
== END 2024-08-16 14:48 | disposition home or self-care (01) ==
LOC: ANHED 08-15 00:19 → ANHIMU 08-15 02:51
PROVIDERS: Student in an Organized Health Care Education/Training Program; Admitting Provider Internal Medicine; Emergency Provider Physician Assistant; Visit Provider Internal Medicine
DX: R07.89 Other chest pain (principal); K21.9 Gastro-esophageal reflux disease without esophagitis; I10 Essential (primary) hypertension; M81.0 Age-related osteoporosis without current pathological fracture; E78.5 Hyperlipidemia, unspecified; F41.8 Other specified anxiety disorders; E87.3 Alkalosis; N28.9 Disorder of kidney and ureter, unspecified; Z79.899 Other long term (current) drug therapy; Z88.0 Allergy status to penicillin
CPT/HCPCS: 36415; 71046; 80053; 83690; 84484; 85025; 85380; 85610; 85730; 93005; 96361; 96372; 96374; 96375; 99285; A9270; C8929; G0378; J1644; J2270; J2405; J7030; Q9957